=== PATIENT | female | born 1960 | race Caucasian/White ===

== ENCOUNTER → 2016-08-18 | Outpatient (CLI) | payer BC | LOC: FIMAGING 11:36 | DX: Z12.31 Encounter for screening mammogram for malignant neoplasm of breast (principal) | CPT/HCPCS: G0202 ==

== ENCOUNTER → 2017-08-10 | Outpatient (CLI) | payer BC | LOC: BMCIMAGING 10:48 | DX: M33.13 Other dermatomyositis without myopathy (principal) ==

== ENCOUNTER → 2017-08-12 | Outpatient (CLI) | payer BC | LOC: BMCIMAGING 10:09 | PROVIDERS: ATTEND Internal Medicine Rheumatology | DX: Z13.820 Encounter for screening for osteoporosis (principal); M85.89 Other specified disorders of bone density and structure, multiple sites ==

== ENCOUNTER → 2017-08-18 | Outpatient (CLI) | payer BC ==
[~2017-08-18] MED LIST: IOPAMIDOL (ISOVUE-300) 100 ML BTL ONE
== END ==
LOC: FIMAGING 09:54
PROVIDERS: ATTEND Internal Medicine Rheumatology
DX: M33.90 Dermatopolymyositis, unspecified, organ involvement unspecified (principal); R10.84 Generalized abdominal pain
CPT/HCPCS: Q9967

== ENCOUNTER 2017-10-01 11:31 | Emergency (ER) | payer BC ==
--- NOTE | 2017-10-01 11:56 | EDPHY ---
H & P Stated Complaint: cough, phlegm, congestion x6 days, fever since last night Source: Patient Exam Limitations: No limitations - Personal History Current Tetanus/Diphtheria Vaccine: Yes Current Tetanus Diphtheria and Acellular Pertussis (TDAP): Yes - Medical/Surgical History Hx Asthma: No Hx Chronic Respiratory Disease: No Hx Diabetes: No Hx Cardiac Disease: No Hx Renal Disease: No Hx Cirrhosis: No Hx Alcoholism: No Hx HIV/AIDS: No Hx Splenectomy or Spleen Trauma: No Other PMH: Dermatomyositis - Social History Smoking Status: Never smoked Time Seen by Provider: 10/01/17 11:55 HPI/ROS: HPI: This is a 48-year-old female who presents with Chief Complaint: cough, phlegm, congestion x6 days, fever since last night Location: Chest Quality: Cough, congestion Duration: 6 days Signs and Symptoms: + temp 101F fever last night, no nausea, no vomiting, no diarrhea, no urinary symptoms, no chest pain, no shortness of breath, no wheezing, + cough, no sore throat, no neck stiffness, no joint pain, no swollen glands, no ear pain, no rash Timing: Gradual onset, worsening Severity: Moderate Context: History of dermatomyositis on prednisone and methotrexate presents at the urging of her aircraft maintenance manager to come to the emergency room to obtain a chest x-ray to evaluate for pneumonia. Patient has had an upper respiratory infection for the last 6 days described as nasal congestion, sinus pressure, nonproductive cough. Last night she developed a fever of 101 F accompanied by productive cough of green sputum in the last 2 days. Patient reports that she has associated fatigue that has worsened over the last 24 hr. No history of lung disease. She denies any recent long distance travel/lower extremity swelling/wheezing/chest pain. She took Tylenol last night with relief her fever. She is eating and drinking normally but admits to a decreased appetite. Her is at bedside and is not sick. Her aircraft maintenance manager advised her to go off the methotrexate while she is sick. Modifying Factors: [id number] antipyretics Comment: ROS: see HPI Constitutional: + fever, no chills, no weight loss Eyes: No blurred vision Respiratory: No shortness of breath, + cough Cardiovascular: No chest pain, no palpitations Gastrointestinal: No nausea, no vomiting, no diarrhea, no hematemesis, no blood in stool Genitourinary: No dysuria, no blood in urine Extremities: No myalgias, no edema Neurologic: No weakness, no numbness Skin: No rashes, no petechiae Hematologic: No bruising, no bleeding MEDICAL/SURGICAL/SOCIAL HISTORY: Medical history: Dermatomyositis Surgical history: Denies Social history: Never smoked. Family history noncontributory. CONSTITUTIONAL: Ill but nontoxic appearing middle-aged white female, at bedside, awake and alert, no obvious distress HEENT: Atraumatic and normocephalic, PERRL, EOMI. Nares patent; no rhinorrhea; no nasal mucosal edema. Tympanic membranes clear. Oropharynx clear, no exudate and moist pink mucosa. Airway patent. No lymphadenopathy. No meningismus. Cardiovascular: Normal S1/S2, regular rate, regular rhythm, without murmur rub or gallop. PULMONARY/CHEST: Symmetrical and nontender. Diminished at right base and clear to auscultation on the left side. Good air movement. No accessory muscle usage. Dry cough noted. ABDOMEN: Soft, nondistended, nontender, no rebound, no guarding, no peritoneal signs, no masses or organomegaly. No CVAT. EXTREMITIES: 2/2 pulses, strength 5/5, no deformities, no clubbing, no cyanosis or edema. NEUROLOGICAL: no focal neuro deficits. GCS 15. SKIN: Warm and dry, no erythema. no rash. Good capillary refill. (Tosha Pederson) Constitutional: Initial Vital Signs Temperature (C) 37.3 C 10/01/17 11:41 Heart Rate 95 10/01/17 11:41 Respiratory Rate 16 10/01/17 11:41 Blood Pressure 126/80 H 10/01/17 11:41 O2 Sat (%) 93 10/01/17 11:41 O2 Delivery Mode Room Air Allergies/Adverse Reactions: oxycodone Allergy (Verified 10/01/17 11:40) Home Medications: Medication Instructions Recorded Benzonatate [Tessalon Pearles (RX)] 100 mg PO Q6 PRN #12 cap 10/01/17 Guaifenesin/Codeine Phosphate 10 ml PO Q4 PRN #240 ml 10/01/17 [Guaifen-Codeine 100-10 mg/5 ml] Hydroxychloroquine Sulfate 10/01/17 Methotrexate 10/01/17 Moxifloxacin [Avelox 400 mg (*)] 400 mg PO DAILY #10 tab 10/01/17 Prednisone 10/01/17 Medical Decision Making - Diagnostics Imaging Results: Imaging Impressions Chest X-Ray 10/01/17 11:48 Impression: Patchy right lower lobe pneumonia. ED Course/Re-evaluation: Vital signs reviewed upon arrival and show no signs of hypoxia/tachycardia/ tachypnea. Patient has politely declined laboratory studies and wishes to proceed with chest x-ray only. Chest x-ray my read via PACs shows right lower lobe opacity consistent with pneumonia Given fluoroquinolone, antitussives and advised close follow-up with primary care provider early next week. CURB 65 score= low risk and is appropriate to treat outpatient. This patient was seen under the supervision of my secondary supervising physician. I evaluated care for this patient independently. Discussed this patient with Dr. Pinto who did not see the patient. (Tosha Pederson) Differential Diagnosis: Adult fever including but not limited to viral syndromes including influenza, bronchitis, pneumonia and sepsis. (Tosha Pederson) Other Provider: PHYSICIAN DOCUMENTATION: The patient was evaluated and managed by the Physician Justice Professor. My co- signature indicates that I have reviewed this chart and I agree with the findings and plan of care as documented. I am the secondary supervising physician. (Rudy Pinto) Departure - Departure Disposition: Home, Routine, Self-Care Clinical Impression: Community acquired pneumonia Qualifiers: Laterality: right Lung location: lower lobe of lung Qualified Code(s): J18.1 - Lobar pneumonia, unspecified organism Condition: Good Instructions: Community Acquired Pneumonia (ED) Additional Instructions: Rest as much as possible until you are feeling better. Take all of the antibiotic until complete as directed. Do not skip any doses. Please make sure to drink plenty of fluids. Take Tylenol 650 mg every 4 hours and/or Ibuprofen 600 mg every 8 hours with food as needed for fever. Use Tessalon Perles or Robitussin with codeine every 6 hours as needed for moderate to severe cough. Please follow-up with your primary care provider or aircraft maintenance manager in the next 2 -3 days. Follow-Up: Please follow-up as noted above. Follow-up sooner if your condition worsens or if you develop any new problems. Call as soon as possible for an appointment. Be clear when you call for an appointment that this is an Emergency Department follow-up. Contact the Emergency Department if you have trouble arranging follow-up care. Our referrals are not based on your insurance network. When time allows, contact your insurance carrier to verify the referral physician is in your plan. If not, get a referral for an in-network associate. Return to the ER immediately if you experience fevers/chills, shortness of breath, abdominal pain, inability to tolerate oral intake, or any other symptoms that concern you. Referrals: Bella Ovalles MD [Primary Care Provider] - 2-3 days, call for appt. Prescriptions: Benzonatate [Tessalon Pearles (RX)] 100 mg PO Q6 PRN #12 cap PRN Reason: Cough, Mild Guaifenesin/Codeine Phosphate [Guaifen-Codeine 100-10 mg/5 ml] 10 ml PO Q4 PRN # 240 ml PRN Reason: Cough, Severe Moxifloxacin [Avelox 400 mg (*)] 400 mg PO DAILY #10 tab
[2017-10-01 13:28] VITALS: BP 122/63
== END 2017-10-01 13:27 | disposition home or self-care (01) ==
DX: J18.9 Pneumonia, unspecified organism (principal)